=== PATIENT | female | born 1975 | race Two or more races ===

== ENCOUNTER 2017-12-03 10:58 | Outpatient (CLI) | payer OTHER | END 2017-12-03 11:16 | disposition home or self-care (01) | LOC: SONOGRAMA 10:58 | DX: N60.11 Diffuse cystic mastopathy of right breast (principal); N60.12 Diffuse cystic mastopathy of left breast; N63.41 Unspecified lump in right breast, subareolar ==

== ENCOUNTER → 2017-12-28 | Day surgery (SDC) | payer OTHER ==
[~2017-12-28] MED LIST: FUSION PLUS CA1 EACH PO
== END | disposition home or self-care (01) ==
LOC: CIR.AMB 06:54
DX: D24.1 Benign neoplasm of right breast (principal)

== ENCOUNTER 2021-05-05 10:12 | Day surgery (SDC) | payer OTHER ==
[~2021-05-05 10:12] MED LIST changes: +CATAFLAN PO; +PROTON PO
[2021-05-05] MEDS ORDERED: IBU800 MG PO (17:41)
[2021-05-05] MEDS ORDERED: ZITHROMAX500 MG PO (17:41)
== END 2021-05-05 20:00 | disposition home or self-care (01) ==
LOC: CIR.AMB 10:12
PROVIDERS: ATTEND Obstetrics & Gynecology
DX: N85.01 Benign endometrial hyperplasia (principal); Z20.822 Contact with and (suspected) exposure to COVID-19

== ENCOUNTER 2021-07-15 14:41 | Inpatient (IN) | payer OTHER ==
[~2021-07-15] VITALS: Ht 154.9 cm; Wt 46.7 kg
[~2021-07-15 14:41] MED LIST changes: +IBU800 MG PO; +ZITHROMAX500 MG PO
[2021-07-22] MEDS ORDERED: DICLOFENAC SODI50 MG PO (08:31)
[2021-07-22] MEDS ORDERED: TAGAMET300 MG PO (08:32)
[2021-07-22] MEDS ORDERED: PROTONIX40 MG PO (08:32)
[2021-07-22] MEDS ORDERED: CELEBREX200MG PO (09:28)
[2021-07-22] MEDS ORDERED: COLACE100 MG PO (09:28)
[2021-07-22] MEDS ORDERED: FUSION PLUS CA1 EACH PO (09:29)
== END 2021-07-22 12:46 | disposition home or self-care (01) | DRG 743 ==
LOC: EDSTATUS 07-19 11:15 → O/R 07-21 05:41 → OB/GYN 07-21 11:00 → CIR.AMB 07-21 11:15 → EDSTATUS 07-21 11:15 → SURG-SUITE 07-21 11:37
PROVIDERS: ADMIT Obstetrics & Gynecology; ATTEND Obstetrics & Gynecology
PROC: 0UT77ZZ Resection of Bilateral Fallopian Tubes, Via Natural or Artificial Opening (ICD-10-PCS; 2021-07-21)
PROC: 0UT27ZZ Resection of Bilateral Ovaries, Via Natural or Artificial Opening (ICD-10-PCS; 2021-07-21)
PROC: 0USG7ZZ Reposition Vagina, Via Natural or Artificial Opening (ICD-10-PCS; 2021-07-21)
PROC: 0UT97ZZ Resection of Uterus, Via Natural or Artificial Opening (ICD-10-PCS; principal; 2021-07-21 11:00)
DX: D25.1 Intramural leiomyoma of uterus (principal); D25.2 Subserosal leiomyoma of uterus; D25.0 Submucous leiomyoma of uterus; N85.01 Benign endometrial hyperplasia; Z20.822 Contact with and (suspected) exposure to COVID-19; D50.8 Other iron deficiency anemias